=== PATIENT | male | born 1980 | race Caucasian/White ===

== ENCOUNTER 2017-02-04 18:35 | Emergency (ER) | payer BC ==
[2017-02-04] MEDS ORDERED: ONDANSETRON HCL INJ/PF 4 MG/2 ML SDV IV ONE (19:14)
[2017-02-04] MEDS ORDERED: MORPHINE SULFATE 10 MG/ML INJ IV ONE ×2 (19:14→19:56)
--- NOTE | 2017-02-04 19:21 | ER Document Report ---
ED Neck/Back Problem - General Chief Complaint: Back Pain Stated Complaint: BACK PAIN Mode of Arrival: Ambulatory Information source: Patient - HPI Patient complains to provider of: Pain Onset: This afternoon Where: Outdoors Onset: Sudden Timing: Constant Quality of pain: Stabbing Severity: Severe Associated symptoms: Abdominal pain Notes: Patient arrives with complaints of severe left back and abdominal pain. States that he was helping move a 2000 pound statue when he had sudden pain in his left flank/thoracic back that radiated around into the left side of his abdomen into the left testicle and is now going down his left leg. He denies any traumatic injury to this area. He states that his pants were wet and he thinks he may have lost control of his bladder when this initially happened, but denies any loss of bowel control and has had no other loss of bladder control. He denies being on blood thinners. He denies IV drug use. He denies fever. He complains of nausea, but denies any vomiting or diarrhea. He denies any history of this in the past. No chest pain or shortness of breath. Pain is worse with any movement, nothing makes it better. - Related Data Allergies/Adverse Reactions: amitriptyline [From Elavil] Allergy (Verified 02/04/17 19:02) methylphenidate [From Ritalin] Allergy (Verified 02/04/17 19:02) gabapentin [From Neurontin] Adverse Reaction (Verified 02/04/17 19:02) Past Medical History - Social History Smoking Status: Unknown if Ever Smoked Family History: Reviewed & Not Pertinent Surgical Hx: Negative Review of Systems - Review of Systems -: Yes All other systems reviewed and negative Physical Exam - Vital signs Vitals: Temp Pulse Resp BP Pulse Ox 98.3 F 90 18 146/97 H 98 02/04/17 18:54 02/04/17 18:54 02/04/17 18:54 02/04/17 18:54 02/04/17 18:54 - Notes Notes: GENERAL: alert, cooperative, nontoxic, no distress. Patient does appear to be in moderate to severe pain. HEAD: normocephalic, atraumatic EYES: conjunctiva pink without discharge, no external redness or swelling. EARS: no external swelling, no external redness NOSE: atraumatic, no external swelling MOUTH/THROAT: mucous membranes moist and pink, posterior pharynx without erythema, swelling, exudate. No trismus or drooling. NECK: soft, supple, full range of motion, no meningismus. CHEST: no distress, lungs clear and equal throughout. No wheezing, rales, rhonchi. CARDIAC: regular rate and rhythm, no murmur, normal capillary refill, normal pulses. No peripheral edema noted. ABDOMEN: soft, tenderness to palpation of the left upper and lower abdomen. No obvious mass or hernia identified., no pusatile mass. Rectal exam shows no external lesions, normal rectal tone with no tenderness. GENITALIA: Circumcised penis with no blood or discharge. Testicular exam is normal with no tenderness to palpation of the testicles and no mass. No hernia appreciated. No inguinal mass or hernia appreciated. BACK: Tenderness to palpation of the thoracic spine and thoracic paraspinal muscles. No step-offs or crepitus. Limited range of motion of the back due to pain. EXTREMITIES: full range of motion of all extremities. No redness, no swelling. NEURO: alert and oriented 3, no focal deficits, full range of motion of all extremities. 5 out of 5 flexion and extension of the lower extremities bilaterally. Patellar and Achilles deep tendon reflexes are +2 bilaterally. No saddle anesthesia. PYSCH: appropriate mood, affect. Patient is cooperative. SKIN: pink, warm, dry, no rash. Course - Re-evaluation Re-evalutation: 02/04/17 22:02 Patient is feeling somewhat better after medications. Patient arrives with left flank pain radiating into the left abdomen and left testicle. Testicular exam is completely normal with no sign of testicular torsion. Patient continues to have some left-sided flank pain. He states it is worse when he moves or takes a deep breath. He denies any chest pain or shortness of breath. No fever. No fevers. He states that this pain started immediately after lifting a heavy statue. The patient reports that he had some possible brief loss of bladder control when this occurred, no bowel function. He has normal rectal tone. He has normal reflexes and strength to his lower extremities bilaterally. He has no saddle anesthesia. Is very unlikely to be cauda equina or spinal cord compression. The patient blood work and urine are unremarkable. CT of the abdomen and pelvis shows no acute abnormality. Patient has no risk for epidural abscess or bleed. Exam is not consistent with this either. Possible at the patient has either a herniated disc or some significant muscle spasm due to lifting a heavy statue. This point the patient will be discharged home with Percocet, Valium, Naprosyn. He is instructed to follow up with primary care or orthostatic neurosurgeon at next available appointment. Follow- up sooner if he develops increasing pain, fever, difficulty controlling his bowels or his bladder, weakness to the legs, or any further concerns. The patient is noted to have elevated blood pressure during today's emergency department visit. The patient was informed of this finding. The patient was instructed that this may be related to pre-hypertension and requires further evaluation with a primary care provider. The patient has no hypertensive symptoms at this time. The patient's emergency department workup and current diagnosis were explained to the patient and or family. Follow-up instructions were provided. Medications if prescribed were discussed. Instructions for when to return to the emergency department including specific worrisome symptoms were discussed with the patient and/or family. This case was discussed with my attending physician Dr. Sears. - Vital Signs Vital signs: Temp Pulse Resp BP Pulse Ox 98.3 F 90 18 146/97 H 98 02/04/17 18:54 02/04/17 18:54 02/04/17 18:54 02/04/17 18:54 02/04/17 18:54 - Laboratory Result Diagrams: 02/04/17 19:28 02/04/17 19:28 Discharge - Discharge Clinical Impression: Left flank pain Condition: Stable Disposition: HOME, SELF-CARE Instructions: Abdominal Pain ([facility]), Low Back Pain ([facility]), Oral Narcotic Medication ([facility]) Additional Instructions: Take medications as prescribed. Avoid heavy lifting. Follow up with primary care, or or so, or neurosurgery if not better in the next 3-5 days. He should follow-up sooner or return if he had increasing pain, fever, difficulty controlling her bowels or bladder, weakness in her legs, chest pain or shortness of breath, or any further concerns. Your blood pressure was elevated during today's visit. Have this rechecked with your doctor. The medication you were prescribed today may cause drowsiness. Do not drive or operate heavy machinery while taking this medication. Prescriptions: Oxycodone HCl/Acetaminophen [Percocet 5-325 mg Tablet] 1 tab PO Q4HP PRN #15 tab PRN Reason: Diazepam [Valium 5 mg Tablet] 5 mg PO BIDP PRN #10 tablet PRN Reason: Naproxen 500 mg PO BID #20 tablet Forms: Elevated Blood Pressure
[2017-02-04 19:56] LABS: ABSOLUTE EOSINOPHILS # (AUTO) 0.2 10^3/uL (0.0-0.6); ABSOLUTE LYMPHOCYTES (AUTO) 2.7 10^3/uL (0.5-4.7); ABSOLUTE MONOCYTES (AUTO) 0.8 10^3/uL (0.1-1.4); ABSOLUTE NEUT (AUTO) 4.6 10^3/uL (1.7-8.2); BASOPHILS % (AUTO) 0.4 % (0-2); EOSINOPHILS % (AUTO) 2.5 % (0-6); HEMATOCRIT 41.9 % (37.9-51.0); HEMOGLOBIN 14.9 g/dL (13.5-17.0); HGB HCT DIFFERENCE 2.8; LYMPHOCYTES % (AUTO) 32.1 % (13-45); MEAN CORPUSCULAR HEMOGLOBIN 33.2 pg (27.0-33.4); MEAN CORPUSCULAR HGB CONC 35.5 g/dL (32.0-36.0); MEAN CORPUSCULAR VOLUME 94 fl (80-97); MONOCYTES % (AUTO) 9.4 % (3-13); RED BLOOD COUNT 4.47 10^6/uL (4.35-5.55); RED CELL DISTRIBUTION WIDTH 12.7 % (11.5-14.0); SEGMENTED NEUTROPHILS % (AUTO) 55.6 % (42-78); WHITE BLOOD COUNT 8.3 10^3/uL (4.0-10.5)
[2017-02-04 20:10] LABS: ALANINE AMINOTRANSFERASE 37 U/L (21-72); ALBUMIN 4.7 g/dL (3.5-5.0); ALKALINE PHOSPHATASE 49 U/L (38-126); ANION GAP 15 (5-19); ASPARTATE AMINO TRANSFERASE 35 U/L (17-59); BILIRUBIN,DIRECT 0.3 mg/dL (0.0-0.4); BILIRUBIN,TOTAL 0.7 mg/dL (0.2-1.3); BLOOD UREA NITROGEN 20 mg/dL (7-20); CALCIUM 9.9 mg/dL (8.4-10.2); CARBON DIOXIDE 24 mmol/L (22-30); CHLORIDE 104 mmol/L (98-107); GLUCOSE 102 mg/dL (75-110); POTASSIUM 4.5 mmol/L (3.6-5.0); SODIUM 142.9 mmol/L (137-145); TOTAL PROTEIN 7.4 g/dL (6.3-8.2)
[2017-02-04 20:28] LABS: APPEARANCE,URINE CLEAR; BILIRUBIN,URINE NEGATIVE (NEGATIVE); GLUCOSE, URINE NEGATIVE (NEGATIVE); KETONES,URINE NEGATIVE (NEGATIVE); LEUKOCYTE ESTERASE,URINE NEGATIVE (NEGATIVE); NITRITE,URINE NEGATIVE (NEGATIVE); PROTEIN,URINE NEGATIVE (NEGATIVE); UROBILINOGEN,URINE NEGATIVE mg/dL (<2.0)
[2017-02-04] MEDS ORDERED: KETOROLAC TROMETHAMINE INJ/PF 30 MG/1 ML SDV IV ONE (21:25)
[2017-02-04] MEDS ORDERED: DIAZEPAM INJ 10 MG/2 ML DISP.SYRIN IV ONE (21:28)
[2017-02-04 22:59] VITALS: BP 147/94
== END 2017-02-04 23:00 | disposition home or self-care (01) ==
LOC: ER 18:35
DX: R10.9 Unspecified abdominal pain (principal); M54.9 Dorsalgia, unspecified; M54.6 Pain in thoracic spine; R11.0 Nausea
CPT/HCPCS: 96376; 99284; 96374; 96375; 36415; 85025; 80053; 81001; 74177; J3360; J1885; J2270; J2405